=== PATIENT | female | born 1955 | race African-American/Black ===

== ENCOUNTER 2017-02-28 18:58 | Emergency (ER) | payer OTHER ==
[2017-02-28 19:41] VITALS: TEMP 97.6; O2SAT 98
--- NOTE | 2017-02-28 19:43 | ED.PDOC ---
History of Present Illness - General Chief Complaint: Skin/Abrasion/Tear Stated Complaint: skin infection to port site, Time Seen by Provider: 02/28/17 19:07 Source: patient Exam Limitations: no limitations - History of Present Illness Initial Comments: the patient is a 61-year-old Afro-F[place]ian female presenting to the emergency room secondary to the port in her upper anterior right chest, eating exposed to air. She is unsure how long he has been exposed to air. Possibly as long as 2 weeks. 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 No fevers. No pain in the area. It does appear that it was exposed due to continued external rubbing. Last use of the port was apparently more than a month ago. She is uncertain if there are 1 to restart chemotherapy within the coming month. No fevers and no other new symptoms. Timing/Duration: unsure Severity: mild Improving Factors: nothing Worsening Factors: nothing Allergies/Adverse Reactions: Allergies NO KNOWN ALLERGY Allergy (Verified 02/28/17 19:37) Review of Systems - Review of Systems Constitutional: States: no symptoms reported EENTM: States: no symptoms reported Respiratory: States: no symptoms reported Cardiology: States: no symptoms reported Gastrointestinal/Abdominal: States: no symptoms reported Genitourinary: States: no symptoms reported Musculoskeletal: States: no symptoms reported Skin: States: see HPI Neurological: States: no symptoms reported Endocrine: States: no symptoms reported Physical Exam - Physical Exam General Appearance: Alert, Comfortable, No apparent distress Eye Exam: bilateral normal Ears, Nose, Throat: normal ENT inspection, normal pharynx Neck: full range of motion, supple Respiratory: lungs clear, normal breath sounds, no respiratory distress, no accessory muscle use Cardiovascular/Chest: normal peripheral pulses, no edema Peripheral Pulses: radial,right: 2+, radial,left: 2+, dorsalis pedis,right: 2+, dorsalis pedis,left: 2+ Extremity: normal range of motion, normal inspection, no pedal edema, normal capillary refill Neurologic: alert, normal mood/affect, oriented x 3 Skin Exam: normal color Comments: cChistory of present illness for erosion over thee port. Vital Signs - 24 hr 02/28/17 19:38 Temperature 97.6 F Pulse Rate [ 79 Right] Respiratory 20 Rate Blood Pressure 121/87 [Right Arm] O2 Sat by Pulse 98 Oximetry Progress - Progress Progress: 02/28/17 19:45 wound culture has been performed. Blood culture has been performed. The patient is presenting secondary to the erosion of skin over her venous access port. The wound is cleaned and dressed sterilely. The patient is to follow-up with Dr. Griffith on Tuesday. She needs to call his office and set up an appointment for that day. She also needs to call her oncologist to determine what their plans are for her over the next few months. ER warnings were given. No overt evidence of infection at this time. Departure - Departure Clinical Impression: Vascular port complication Disposition: Discharge to Home or Self Care Condition: Fair Departure Forms: ED Discharge - Pt. Copy, Patient Portal Self Enrollment Diet: regular diet Activity: increase activity as tolerated Additional Instructions: wound culture has been performed. Blood culture has been performed. The patient is presenting secondary to the erosion of skin over her venous access port. The wound is cleaned and dressed sterilely. The patient is to follow-up with Dr. Griffith on Tuesday. She needs to call his office and set up an appointment for that day. She also needs to call her oncologist to determine what their plans are for her over the next few months. ER warnings were given. No overt evidence of infection at this time.
[2017-02-28 20:11] VITALS: BP 128/78
== END 2017-02-28 20:11 | disposition home or self-care (01) ==
LOC: ER 18:58
DX: T82.9XXA Unspecified complication of cardiac and vascular prosthetic device, implant and graft, initial encounter (principal); C55 Malignant neoplasm of uterus, part unspecified; C78.00 Secondary malignant neoplasm of unspecified lung

== ENCOUNTER 2017-04-28 19:03 | Emergency (ER) | payer OTHER ==
[2017-04-28 19:26] VITALS: O2SAT 98
[2017-04-28] MEDS ORDERED: traMADol HCL 50 MG TAB PO ONE (19:42)
[2017-04-28] MEDS ORDERED: predniSONE 20 MG TAB PO ONE (19:42)
--- NOTE | 2017-04-28 20:09 | ED.PDOC ---
History of Present Illness - General Chief Complaint: Headache Stated Complaint: headaches, hx CA Time Seen by Provider: 04/28/17 19:04 Source: patient - History of Present Illness Initial Comments: The patient is a 61-year-old -[place] female presenting to the emergency room secondary to a headache that is essentially left-sided facial pressure and earache. The patient tested positive last week for streptococcal pharyngitis and was placed on cefdinir. She is still taking this antibiotic. Her sore throat has nearly resolved. She is not having any fevers. She is not having any hearing changes. She apparently had a normal set of blood work with her oncologist just 2 days ago. She is not having any altered mental status. She is not having any vision changes. She was just informed today that her oncologist wants to resumechemotherapy for her metastatic uterine cancer. She is anxious over that. No nuchal rigidity or meningeal signs. No fevers. Her brother is here with her. Timing/Duration: 1 week Severity: moderate Improving Factors: nothing Worsening Factors: nothing Associated Symptoms: denies symptoms Allergies/Adverse Reactions: Allergies NO KNOWN ALLERGY Allergy (Verified 02/28/17 19:37) Home Medications: Ambulatory Orders Ibwpfyyycnwbh-Exdz-Nmnxecfrsu [Fioricet] 1 ea PO Q8H PRN #21 tab 04/28/17 predniSONE [Prednisone] 20 mg PO DAILY #3 tab 04/28/17 Review of Systems - Review of Systems Constitutional: States: malaise EENTM: States: ear pain, throat pain - mostly resolved Respiratory: States: no symptoms reported Cardiology: States: no symptoms reported Gastrointestinal/Abdominal: States: no symptoms reported Genitourinary: States: no symptoms reported Musculoskeletal: States: no symptoms reported Skin: States: no symptoms reported Neurological: States: anxiety Endocrine: States: no symptoms reported All other Systems: No Change from Baseline Past Medical History (General) - Patient Medical History Hx Hypertension: Yes Hx Cancer: Yes - uterine, lung Surgical History: tonsillectomy, Hysterectomy - Vaccination History Hx Tetanus, Diphtheria Vaccination: Yes Hx Influenza Vaccination: Yes Hx Pneumococcal Vaccination: Yes Family Medical History - Family History Father Family History: Unknown Physical Exam - Physical Exam General Appearance: Alert, Anxious, No apparent distress Eye Exam: bilateral normal Ears, Nose, Throat: hearing grossly normal, normal ENT inspection Neck: full range of motion, supple Respiratory: lungs clear, normal breath sounds, no respiratory distress Cardiovascular/Chest: normal peripheral pulses, regular rate, rhythm, no edema Peripheral Pulses: radial,right: 2+, radial,left: 2+, dorsalis pedis,right: 2+, dorsalis pedis,left: 2+ Gastrointestinal/Abdominal: non tender, soft Rectal Exam: deferred Extremity: non-tender, no pedal edema, no calf tenderness, normal capillary refill Neurologic: emergency communications officer II-XII nml as tested, alert, normal mood/affect - she is anxious , oriented x 3 Skin Exam: normal color Comments: Vital Signs - 24 hr 04/28/17 19:20 Temperature 96.6 F L Pulse Rate [ 84 left] Respiratory 18 Rate Blood Pressure 148/93 [left] O2 Sat by Pulse 98 Oximetry Progress - Progress Progress: 04/28/17 20:09 the patient is a 61-year-old -[place] female presenting to the emergency room with a headache. She is currently on an antibiotic from treatment for a sore throat last week. I believe most of her discomfort is due to residual inflammation from the URI and possibly a mild left maxillary sinusitis. She needs to complete the antibiotic. The patient will be written for 3 days of oral prednisone. She was given her first dose here. She will also be written for some Fioricet for the headache. Ibuprofen may help as well. She needs to keep follow-up with her oncologist to discuss her future treatment for her cancer. ER warnings were given for any significant worsening. Departure - Departure Clinical Impression: Headache Qualifiers: Headache type: unspecified Headache chronicity pattern: acute headache Intractability: not intractable Qualified Code(s): R51 - Headache Disposition: Discharge to Home or Self Care Condition: Fair Departure Forms: ED Discharge - Pt. Copy, Patient Portal Self Enrollment Diet: regular diet Activity: increase activity as tolerated Prescriptions: Sesvttcibayrl-Cyao-Ctncmjhczi [Fioricet] 1 ea PO Q8H PRN #21 tab PRN Reason: Pain predniSONE [Prednisone] 20 mg PO DAILY #3 tab Home Medications: Ambulatory Orders Yqxmgthjuvhiv-Oiqi-Piacrslzai [Fioricet] 1 ea PO Q8H PRN #21 tab 04/28/17 predniSONE [Prednisone] 20 mg PO DAILY #3 tab 04/28/17 Additional Instructions: the patient is a 61-year-old -[place] female presenting to the emergency room with a headache. She is currently on an antibiotic from treatment for a sore throat last week. I believe most of her discomfort is due to residual inflammation from the URI and possibly a mild left maxillary sinusitis. She needs to complete the antibiotic. The patient will be written for 3 days of oral prednisone. She was given her first dose here. She will also be written for some Fioricet for the headache. Ibuprofen may help as well. She needs to keep follow-up with her oncologist to discuss her future treatment for her cancer. ER warnings were given for any significant worsening.
[2017-04-28 20:20] VITALS: BP 127/84; TEMP 98.2
== END 2017-04-28 20:20 | disposition home or self-care (01) ==
LOC: ER 19:03
DX: R51 Headache (principal); I10 Essential (primary) hypertension; Z85.42 Personal history of malignant neoplasm of other parts of uterus